=== PATIENT | male | born 1955 | race Caucasian/White ===

== ENCOUNTER 2019-06-09 01:41 | Emergency (ER) | payer BC, MEDICARE ==
--- NOTE | 2019-06-09 09:06 | ER ---
DATE SEEN: 06/09/2019 CHIEF COMPLAINT: Foreign body, right eye. 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 He was under his truck in a gas station and felt something fall into his eye, and since that time, he felt a sharp pain when he blinks. Denies any direct trauma. No visual disturbance. PAST MEDICAL HISTORY: Hyperlipidemia. ALLERGIES: Lipitor. REVIEW OF SYSTEMS: No headache. PHYSICAL EXAMINATION: VITAL SIGNS: Normal blood pressure. Pulse is 65, temperature 97.3. EYES: The lids appeared normal. Conjunctivae normal. There is a small scratch on the cornea on the right, which is about a millimeter in size, but no foreign bodies were noted on examination using a lens. The anterior chamber was normal in size and contour, and both extraocular movements were normal. IMPRESSION: Corneal abrasion. PLAN: I did give him 2 drops of tetracaine in the ER, which improved his symptoms. I sent him home with Neosporin hydrocortisone drops to use 1 three times a day for 3 days. Follow up p.r.n. with Optometry if symptoms have not improved. /[id number] LIUDMILA/JONE
== END 2019-06-09 02:25 | disposition home or self-care (01) ==
LOC: FB.ED 01:41
DX: S05.01XA Injury of conjunctiva and corneal abrasion without foreign body, right eye, initial encounter (principal); Z88.8 Allergy status to other drugs, medicaments and biological substances; X58.XXXA Exposure to other specified factors, initial encounter
CPT/HCPCS: 99282